=== PATIENT | female | born 1940 | race Caucasian/White ===

== ENCOUNTER → 2017-02-20 | Outpatient (CLI) | payer MEDICARE, OTHER ==
[~2017-02-20] MED LIST: OMEPRAZOLE40 M1 PO
--- NOTE | ~2017-02-20 | XA80 ---
[facility] A Service of [facility] RADIOLOGY TEXT RESULTS PATIENT: SRIDEVI MARTINEZ LOCATION: CIVR : 38 UNIT #: [id number] AGE: [address]: Sebas Barton MD SEX: F ORDER DR: [id number] [facility] [address] [place], [place] [address] [id number] O MR#: [id number] Acc #: [id number] NAME: SRIDEVI MARTINEZ : 1940 SEX: F STUDY DATE/TIME: 02/20/2017 10:02 UNIT: CIVR ROOM: STUDY DESCRIPTION: XA CVC Remove Tunneled Cath W Attending Physician: Sebas Barton M.D. Ordering Physician: Sebas Barton M.D. Primary Care Physician: Franchesca Phelan M.D. MEDICAL IMAGING REPORT This report is preliminary unless electronic signature is present EXAM Chest port removal. INDICATIONS A 76-year-old female done with treatment and no longer needs chest port. Fluoro time 0.1 minutes. Reference air kerma 1 mGy. FINDINGS Risks, benefits and alternatives and procedure discussed the patient and informed consent was obtained. In the procedure room, a time-out was performed for a correct patient and procedure. All elements maximum sterile-barrier technique utilized according guidelines appropriate for the procedure. This includes sterile caps, gowns, gloves, mask, drapes, 2% Chlorhexidine percutaneous antisepsis and sterile gloves. TECHNIQUE/FINDINGS Spot fluoroscopic images taken. The skin around the chest port was anesthetized using 1% lidocaine. Next a small incision was made through the old scar, and the chest port was removed in its entirety. The incision was closed using 3-0 Vicryl and Dermabond. The patient tolerated procedure well without immediate complications. A spot image was taken confirming that the chest port was removed in its entirety. Please note that conscious sedation was provided with IV Versed and Fentanyl 25 minutes of conscious sedation time was monitored by appropriately credentialed radiology nursing staff. IMPRESSION Successful chest port removal Dictated by... Cody Stinson M.D. [facility] A Service of [facility] RADIOLOGY TEXT RESULTS PATIENT: SRIDEVI MARTINEZ LOCATION: [facility] #: [id number] : 38 UNIT #: [id number] AGE: [address]: Sebas Barton MD SEX: F ORDER DR: THIS IS AN ELECTRONICALLY VERIFIED REPORT Cody Stinson M.D. at 02/21/2017 9:09 AM MAHESH/shawn TD: 02/20/2017 20:10 JOB #: [id number] MEDICAL IMAGING REPORT Page 1 of 1 COPY
[2017-02-20 08:20] LABS: HEMATOCRIT 37.8 % (35.0-45.0); MEAN CELL VOLUME 82.8 FL (83-96); MEAN CORPUSCULAR HEMOGLOBIN 26.3 PG (28-34); MEAN CORPUSCULAR HGB CONC 31.8 g/dL (30-36); MEAN PLATELET VOLUME 7.8 FL (6.5-11.5); RED BLOOD COUNT 4.57 X10e (3.90-5.30); RED CELL DISTRIBUTION WIDTH 24.3 % (11.0-15.5); WHITE BLOOD COUNT 4.5 X10e3 (4.0-10.5)
[2017-02-20 08:29] LABS: PARTIAL THROMBOPLASTIN TIME 23.4 SECONDS (23.5-31.3)
== END | disposition home or self-care (01) ==
LOC: CIVR 07:47
PROVIDERS: Internal Medicine Hematology
DX: Z45.2 Encounter for adjustment and management of vascular access device (principal); C18.4 Malignant neoplasm of transverse colon; D64.9 Anemia, unspecified; K59.00 Constipation, unspecified; Z79.899 Other long term (current) drug therapy; Z88.5 Allergy status to narcotic agent
CPT/HCPCS: 36415; 77001; 85027; 85610; 85730; J2250; J3010